=== PATIENT | male | born 1945 | race Native Hawaiian/Other Pacific Islander ===

== ENCOUNTER 2017-06-02 08:13 | Inpatient (IN) | payer MEDICARE ==
--- NOTE | 2017-06-02 08:27 | ED PDOC ---
HPI: General Adult Time Seen by Provider: 06/02/17 08:19 Chief Complaint (Provider): Left sided weakness History Per: Family History/Exam Limitations: no limitations Onset/Duration Of Symptoms: Hrs (since this morning) Current Symptoms Are (Timing): Still Present Additional Complaint(s): Sigifredo Nava is a 72 y/o male with a past medical history of heart disease s/ p bypass surgery who presents to the ED for complaints of left-sided weakness associated with headache and difficulty speaking, since waking up this morning. PMD: Unknown NIHSS Stroke Scale - Date/Time Evaluation Performed Date Performed: 06/02/17 When Was NIHSS Performed: Baseline - How Severe is the Stroke Level of Consciousness: 1=Drowsy Best Gaze: 0=Normal Visual: 0=No visual loss Facial: 1=Minor asymmetry Motor Arm - Left: 2=Falls before 10 sec Motor Arm - Right: 0=No drift Motor Leg - Left: 0=No drift Motor Leg - Right: 0=No drift Best Language: 1=Mild to moderate aphasia Dysarthia: 0=Normal articulation Past Medical History Reviewed: Historical Data, Nursing Documentation, Vital Signs Vital Signs: Last Vital Signs Temp 98 F 06/02/17 08:25 Pulse 80 06/02/17 13:00 Resp 14 06/02/17 13:00 BP 144/81 06/02/17 13:00 Pulse Ox 100 06/02/17 11:00 - Medical History PMH: CAD - Surgical History Surgical History: CABG - Family History Family History: States: Unknown Family Hx - Home Medications Home Medications: Ambulatory Orders Medication Instructions Recorded Clodrel Plus 1 tab PO DAILY 06/02/17 Flavedon (Trimetazine) 35 mg PO DAILY 06/02/17 Olmesartan [BenicarNf] 20 mg PO DAILY 06/02/17 Simvastatin [Simvastatin] 20 mg PO DAILY 06/02/17 Sorbitrate (Isosorbide Dinitrate) 5 mg PO PRN PRN 06/02/17 - Allergies Allergies/Adverse Reactions: Allergies Allergy/AdvReac Type Severity Reaction Status Date / Time No Known Allergies Allergy Verified 06/02/17 08:25 Review of Systems ROS Statement: Except As Marked, All Systems Reviewed And Found Negative Neurological: Positive for: Weakness (Left-sided), Change in Speech, Headache Physical Exam - Reviewed Nursing Documentation Reviewed: Yes Vital Signs Reviewed: Yes - Physical Exam Appears: Positive for: Non-toxic, No Acute Distress Head Exam: Positive for: ATRAUMATIC, NORMOCEPHALIC Skin: Positive for: Normal Color, Warm, DRY Eye Exam: Positive for: Normal appearance, PERRL Neck: Positive for: Normal, Painless ROM, Supple Cardiovascular/Chest: Positive for: Regular Rate, Rhythm. Negative for: Murmur Respiratory: Positive for: Normal Breath Sounds. Negative for: Accessory Muscle Use, Respiratory Distress Gastrointestinal/Abdominal: Positive for: Normal Exam, Soft. Negative for: Tenderness Extremity: Positive for: Normal ROM (Right side normal) Neurologic/Psych: Positive for: Alert (awake but somnolent), Facial Droop (Mild left-sided), Other (weakness in the left upper extremity, and some difficulty with speech) - Laboratory Results Result Diagrams: 06/02/17 08:46 06/02/17 08:46 - Progress Re-evaluation Time: 11:05 Condition: Re-examined, Improving,but remains with symptoms - Core Measure Core Measure Indicators: Code Stroke Medical Decision Making Medical Decision Making: Time: 08:25 Initial Plan: --CT Head w/o contrast (code stroke) stat --EKG --CMP --CBC --HbA1c --Lipid panel --Troponin I --Blood type and screen --PTT --Prothrombin time --CXR --Accucheck --Pending reevaluation Time: 08:38 CT Head w/o contrast: FINDINGS: HEMORRHAGE: No intracranial hemorrhage. BRAIN: There is some motion for distorting the upper portion of the examination with note definite mass effect or cortical edema appreciable this time. Chronic lobar infarction is identified in the right parietal lobe with a posterior fossa contents and brainstem unremarkable appearing. The midline brain and appears within normal limits. Diffuse cerebral atrophy is identified. Limited periventricular white matter lucency reflects chronic microangiopathy. VENTRICLES: Unremarkable. No hydrocephalus. CALVARIUM: Unremarkable. PARANASAL SINUSES: Unremarkable as visualized. No significant inflammatory changes. MASTOID AIR CELLS: Unremarkable as visualized. No inflammatory changes. OTHER FINDINGS: None. IMPRESSION: 1. There is some motion artifact limiting the interpretation are there is no definitive pattern of suggest an acute or subacute brain infarction at this time. A chronic lobar infarction is identified at the right parietal lobe. 2. Mild age related neuro degenerative changes are identified. No intracranial hemorrhage or mass-effect. Time: 08:50 --Consulted with Neurologist, Dr. Lehman, who reviewed patient's CT and exam findings, and recommends ordering CT Angiogram Time: 08:53 --Pending CT Head Angiography and CTA Head/Neck Time: 12:40 CT Angiography of Brain: FINDINGS: INTERNAL CEREBRAL ARTERIES: Unremarkable. The skull base, petrous, cavernous and supraclinoid segments are bilaterally widely patient. ANTERIOR CEREBRAL ARTERIES: Unremarkable. A1 and A2 segments are widely patent. Smaller distal branches unremarkable, as visualized. MIDDLE CEREBRAL ARTERIES: Unremarkable. M1 and M2 segments are widely patent. Perisylvian branches grossly symmetric. POSTERIOR CIRCULATION: Basilar Artery: Unremarkable. Distal Vertebral Arteries: Unremarkable. Posterior Cerebral Arteries: Unremarkable. Posterior Inferior Cerebellar Arteries: Unremarkable. ANEURYSM/ VASCULAR MALFORMATIONS: None. OTHER FINDINGS: None. IMPRESSION: Unremarkable CT Angiography of the Brain. CT Angiography of Neck: FINDINGS: RIGHT CAROTID ARTERIES: There is calcified plaque in the carotid bifurcation with a mild degree of stenosis of the internal carotid. There is also a transverse flap-like stenosis in the proximal internal carotid seen on image 120 series 302 LEFT CAROTID ARTERIES: Calcified plaque at the carotid bifurcation. There is tortuosity of the internal carotid but no significant stenosis. VERTEBRAL ARTERIES: Right Vertebral Artery: Normal. Left Vertebral Artery: Normal. OTHER FINDINGS: None. IMPRESSION: Bilateral calcified carotid plaques. Small transverse flap-like stenosis in the right proximal internal carotid. There is no evidence of severe or critical stenosis in either carotid. Time: 12:44 --Patient is to be admitted inpatient for CVA, TIA Scribe Attestation: Documented by Celine Velasco, acting as a scribe for Yue Dwyer MD Provider Scribe Attestation: All medical record entries made by the Scribe were at my direction and personally dictated by me. I have reviewed the chart and agree that the record accurately reflects my personal performance of the history, physical exam, medical decision making, and the department course for this patient. I have also personally directed, reviewed, and agree with the discharge instructions and disposition. Disposition - Clinical Impression Clinical Impression: CVA (cerebral vascular accident) - Patient ED Disposition Is Patient to be Admitted: Yes Doctor Will See Patient In The: Hospital Counseled Patient/Family Regarding: Diagnosis, Need For Followup - Disposition Disposition: Transfer of Care Disposition Time: 14:22 Condition: GUARDED - Pt Status Changed To: Hospital Disposition Of: Inpatient - Admit Certification Admit to Inpatient:: After my assessment, the patient will require hospitalization for at least two midnights. This is because of the severity of symptoms shown, intensity of services needed, and/or the medical risk in this patient being treated as an outpatient.
[2017-06-02 08:29] VITALS: BMI 24.3
--- NOTE | 2017-06-02 08:47 | CT ---
PROCEDURE: CT HEAD WITHOUT CONTRAST. HISTORY: code stroke COMPARISON: None available. TECHNIQUE: Axial computed tomography images were obtained through the head/brain without intravenous contrast. Radiation dose: Total exam DLP = 1114.24 mGy-cm. This CT exam was performed using one or more of the following dose reduction techniques: Automated exposure control, adjustment of the mA and/or kV according to patient size, and/or use of iterative reconstruction technique. FINDINGS: HEMORRHAGE: No intracranial hemorrhage. BRAIN: There is some motion for distorting the upper portion of the examination with note definite mass effect or cortical edema appreciable this time. Chronic lobar infarction is identified in the right parietal lobe with a posterior fossa contents and brainstem unremarkable appearing. The midline brain and appears within normal limits. Diffuse cerebral atrophy is identified. Limited periventricular white matter lucency reflects chronic microangiopathy. VENTRICLES: Unremarkable. No hydrocephalus. CALVARIUM: Unremarkable. PARANASAL SINUSES: Unremarkable as visualized. No significant inflammatory changes. MASTOID AIR CELLS: Unremarkable as visualized. No inflammatory changes. OTHER FINDINGS: None. IMPRESSION: 1. There is some motion artifact limiting the interpretation are there is no definitive pattern of suggest an acute or subacute brain infarction at this time. A chronic lobar infarction is identified at the right parietal lobe. 2. Mild age related neuro degenerative changes are identified. No intracranial hemorrhage or mass-effect.
[2017-06-02 09:07] LABS: BASO % 0.6 % (0.0-2.0); EOS # 0.3 K/uL (0.0-0.7); EOS % 3.4 % (0.0-4.0); HEMOGLOBIN 11.8 g/dL (12.0-18.0); LYMPH # 2.3 K/uL (1.0-4.3); LYMPH % 31.3 % (20.0-40.0); MEAN CELL VOLUME 86.3 fl (80.0-94.0); MEAN CORPUSCULAR HEMOGLOBIN 27.9 pg (27.0-31.0); MEAN CORPUSCULAR HGB CONC 32.3 g/dL (33.0-37.0); MEAN PLATELET VOLUME 8.2 fl (7.2-11.7); MONO # 0.4 K/uL (0.0-0.8); MONO % 5.6 % (0.0-10.0); NEUT # 4.4 K/uL (1.8-7.0); NEUT % 59.1 % (50.0-75.0); NRBC % 0.1 % (0.0-0.0); RBC 4.23 Mil/uL (4.40-5.90); RED CELL DISTRIBUTION WIDTH 18.1 % (11.5-14.5); WHITE BLOOD COUNT 7.5 K/uL (4.8-10.8)
[2017-06-02 09:14] LABS: ALB/GLOB RATIO 1.3 (1.0-2.1); ALBUMIN 4.3 g/dL (3.5-5.0); ALT/SGPT 47 U/L (21-72); AST/SGOT 47 U/L (17-59); BLOOD UREA NITROGEN 9 mg/dl (9-20); CALCIUM 9.1 mg/dL (8.4-10.2); GFR AFRICAN-AMERICAN > 60; GFR NON-AFRICAN AMERICAN > 60; HDL CHOLESTEROL 28 MG/DL (30-70)
[2017-06-02 09:23] LABS: INR 1.2 (0.9-1.2); PARTIAL THROMBOPLASTIN TIME 29.1 Seconds (25.6-37.1); PROTHROMBIN TIME 12.4 Seconds (9.8-13.1)
[2017-06-02] MEDS ORDERED: Iodixanol 320 MG/ML 100 ML BOTTLE IV ONE (09:23)
[2017-06-02] MEDS ORDERED: Sodium Chloride 0.9% 50 ML IV ONE (09:24)
[2017-06-02 09:25] LABS: LDL CHOLESTEROL 111 mg/dL (0-129)
--- NOTE | 2017-06-02 09:37 | CARD ---
APPROVED REPORT EKG Measurement Heart [id number] CT 142P-14 [id number] <Conclusion> Normal sinus rhythm Inferior infarct, age undetermined Abnormal ECG
--- NOTE | 2017-06-02 12:41 | CT ---
PROCEDURE: CT Angiography of the Brain. HISTORY: left sided weakness COMPARISON: None available. TECHNIQUE: CT angiography of the intracranial arteries was performed. Coronal and sagittal maximum intensity projection reformated images were generated. This CT exam was performed using one or more of the following dose reduction techniques: Automated exposure control, adjustment of the mA and/or kV according to patient size, and/or use of iterative reconstruction technique. FINDINGS: INTERNAL CEREBRAL ARTERIES: Unremarkable. The skull base, petrous, cavernous and supraclinoid segments are bilaterally widely patient. ANTERIOR CEREBRAL ARTERIES: Unremarkable. A1 and A2 segments are widely patent. Smaller distal branches unremarkable, as visualized. MIDDLE CEREBRAL ARTERIES: Unremarkable. M1 and M2 segments are widely patent. Perisylvian branches grossly symmetric. POSTERIOR CIRCULATION: Basilar Artery: Unremarkable. Distal Vertebral Arteries: Unremarkable. Posterior Cerebral Arteries: Unremarkable. Posterior Inferior Cerebellar Arteries: Unremarkable. ANEURYSM/ VASCULAR MALFORMATIONS: None. OTHER FINDINGS: None. IMPRESSION: Unremarkable CT Angiography of the Brain. PROCEDURE: CT Angiography of the neck with contrast HISTORY: left sided weakness COMPARISON: None available. TECHNIQUE: Contiguous axial images of the neck were obtained from the level of the skull-base to the superior mediastinum in the arteriographic phase of enhancement. Coronal and sagittal reformats or also generated. IV contrast dose: Radiation Dose - DLP: mGy-cm This CT exam was performed using one or more of the following dose reduction techniques: Automated exposure control, adjustment of the mA and/or kV according to patient size, and/or use of iterative reconstruction technique. FINDINGS: RIGHT CAROTID ARTERIES: There is calcified plaque in the carotid bifurcation with a mild degree of stenosis of the internal carotid. There is also a transverse flap-like stenosis in the proximal internal carotid seen on image 120 series 302 LEFT CAROTID ARTERIES: Calcified plaque at the carotid bifurcation. There is tortuosity of the internal carotid but no significant stenosis. VERTEBRAL ARTERIES: Right Vertebral Artery: Normal. Left Vertebral Artery: Normal. OTHER FINDINGS: None. IMPRESSION: Bilateral calcified carotid plaques. Small transverse flap-like stenosis in the right proximal internal carotid. There is no evidence of severe or critical stenosis in either carotid
[2017-06-02] MEDS ORDERED: SORBITRATE PO PRN (14:22)
--- NOTE | 2017-06-02 16:06 | RAD ---
HISTORY: code stroke COMPARISON: No prior. FINDINGS: LUNGS: No active pulmonary disease. PLEURA: No significant pleural effusion identified, no pneumothorax apparent. CARDIOVASCULAR: Cardiomegaly. No evidence of acute, significant cardiovascular disease. OSSEOUS STRUCTURES: No significant abnormalities. VISUALIZED UPPER ABDOMEN: Normal. OTHER FINDINGS: None. IMPRESSION: No active disease.
[2017-06-02] MEDS ORDERED: Pneumococcal 23-Valent Vaccine IM ONE (16:12)
[2017-06-02] MEDS: Enoxaparin 40 mg Syringe SC SCH (22:36)
[2017-06-03] MEDS: Enoxaparin 40 mg Syringe SC SCH (08:35)
--- NOTE | 2017-06-03 11:34 | CARD ---
APPROVED REPORT EXAM: Two-dimensional and M-mode echocardiogram with Doppler and color Doppler. Other Information Quality : AverageRhythm : NSR INDICATION CVA/TIA Surgery/Intervention CABD DIMENSIONS IVSd1.54 (0.7-1.1cm)LVDd4.86 (3.9-5.9cm) LVOT Diameter2.20 (1.8-2.4cm)PWd0.74 (0.7-1.1cm) IVSs1.62 (0.8-1.2cm)LVDs3.57 (2.5-4.0cm) FS (%) 26.5 %PWs1.45 (0.8-1.2cm) M-Mode DIMENSIONS Left Atrium (MM)4.96 (2.5-4.0cm)IVSd0.98 (0.7-1.1cm) Aortic Root3.07 (2.2-3.7cm)LVDd6.57 (4.0-5.6cm) Aortic Cusp Exc.1.99 (1.5-2.0cm)PWd0.87 (0.7-1.1cm) IVSs2.06 cmFS (%) 43 % LVDs3.77 (2.0-3.8cm)PWs1.08 cm Mitral Valve MV E Yhvspkdk45.1cm/sMV DECEL [id number] A Mnfmrkic25.0cm/s MV [id number]/A ratio1.5MVA (PHT)3.94cm2 TDI Lateral E' Peak V10.02cm/sMedial E' Peak V4.73cm/sE/Lateral E'8.2 E/Medial E'17.4 Pulmonary Valve PV Peak Zamzyddg57.4cm/s Tricuspid Valve TR Peak Nrftnlpt544dd/sRAP [id number] Peak Gr.28mmHg [id number] LEFT VENTRICLE The left ventricle is normal size. There is normal left ventricular wall thickness. Left ventricle systolic function is normal. The Ejection Fraction is 60-65%. Inferior wall was mildly hypokinetic. Other LV wall segments contracted normally, Transmitral Doppler flow pattern is Grade I-abnormal relaxation pattern. RIGHT VENTRICLE The right ventricle is normal size. There is normal right ventricular wall thickness. The right ventricular systolic function is normal. ATRIA The left atrium size is normal. The right atrium size is normal. AORTIC VALVE The aortic valve is normal in structure and function. No aortic regurgitation is present. There is no aortic valvular stenosis. MITRAL VALVE The mitral valve is normal in structure. There is no evidence of mitral valve prolapse. There is no mitral valve stenosis. Mitral regurgitation is mild to moderate. TRICUSPID VALVE The tricuspid valve is normal in structure. There is mild tricuspid regurgitation. Right ventricular systolic pressure is estimated at 38 mmHg. There is mild pulmonary hypertension. PULMONIC VALVE The pulmonary valve is normal in structure and function. There is no pulmonic valvular regurgitation. GREAT VESSELS The aortic root is normal in size. Due to poor image quality, the IVC could not be assessed. PERICARDIAL EFFUSION The pericardium appears normal. <Conclusion> Poor echo window with suboptimal images. The left ventricle is normal size. There is normal left ventricular wall thickness. Inferior wall was mildly hypokinetic. Other LV wall segments contracted normally, Left ventricle systolic function is normal. The Ejection Fraction is 60-65%. Transmitral Doppler flow pattern is Grade I-abnormal relaxation pattern. Mitral regurgitation is mild to moderate. There is mild tricuspid regurgitation. There is mild pulmonary hypertension.
[2017-06-03] MEDS: CYANOCOBALAMIN 500 MCG TAB PO SCH (12:37)
--- NOTE | 2017-06-03 14:23 | CP.PCM.HP ---
<Erin Edgar - Last Filed: 06/03/17 15:49> History of Present Illness - History of Present Illness History of Present Illness: 72 y/o male with PMHx of HTN, HLD, CAD ( s/p CABG on 2000) presents to ED accompanied by family c/o slurry speech, left-sided weakness associated with headaches, since waking up yesterday morning. Patient denies headaches, dizziness, Cp, SOB, N/V at this evaluation, but still reporting left sided weakness and pain in right upper extremity. As per family, this was the first episode of reported S/S, and patient did not fall or had LOC. Present on Admission - Present on Admission Any Indicators Present on Admission: No History of DVT/PE: No History of Uncontrolled Diabetes: No Urinary Catheter: No Decubitus Ulcer Present: No Review of Systems - Review of Systems All systems: reviewed and no additional remarkable complaints except (as per HPI ) Past Patient History - Past Medical History & Family History Past Medical History?: Yes - Past Social History Smoking Status: Never Smoked - CARDIAC Hx Cardiac Disorders: Yes Hx Heart Attack: Yes - PULMONARY Hx Respiratory Disorders: No - NEUROLOGICAL Hx Neurological Disorder: No - HEENT Hx HEENT Problems: No - RENAL Hx Chronic Kidney Disease: No - ENDOCRINE/METABOLIC Hx Endocrine Disorders: No - HEMATOLOGICAL/ONCOLOGICAL Hx Blood Disorders: No - INTEGUMENTARY Hx Dermatological Problems: No - MUSCULOSKELETAL/RHEUMATOLOGICAL Hx Musculoskeletal Disorders: No Hx Falls: No - GASTROINTESTINAL Hx Gastrointestinal Disorders: No - GENITOURINARY/GYNECOLOGICAL Hx Genitourinary Disorders: No - PSYCHIATRIC Hx Psychophysiologic Disorder: No Hx Substance Use: No - SURGICAL HISTORY Hx Surgeries: Yes Hx Coronary Artery Bypass Graft: Yes - ANESTHESIA Hx Anesthesia: Yes Hx Anesthesia Reactions: No Hx Malignant Hyperthermia: No Meds Allergies/Adverse Reactions: Allergies Allergy/AdvReac Type Severity Reaction Status Date / Time No Known Allergies Allergy Verified 06/02/17 08:25 Physical Exam - Constitutional Appears: Non-toxic - Eye Exam Eye Exam: Normal appearance - ENT Exam ENT Exam: Mucous Membranes Moist - Respiratory Exam Respiratory Exam: Clear to Auscultation Bilateral, NORMAL BREATHING PATTERN. absent: Rales, Rhonchi, Wheezes, Respiratory Distress - Cardiovascular Exam Cardiovascular Exam: REGULAR RHYTHM, +S1, +S2 - GI/Abdominal Exam GI & Abdominal Exam: Normal Bowel Sounds, Soft. absent: Guarding, Rigid, Tenderness - Extremities Exam Extremities exam: Positive for: normal inspection. Negative for: calf tenderness, pedal edema - Neurological Exam Neurological exam: Alert, CN II-XII Intact, Oriented x3, Reflexes Normal Additional comments: left upper extremity strength 4/5, right UE strength 5/5 - Psychiatric Exam Psychiatric exam: Normal Affect - Skin Skin Exam: Dry, Intact, Normal Color Results - Vital Signs Recent Vital Signs: Last Vital Signs Temp 98.1 F 06/03/17 12:00 Pulse 74 06/03/17 12:00 Resp 20 06/03/17 12:00 BP 131/70 06/03/17 12:00 Pulse Ox 99 06/03/17 12:00 - Labs Result Diagrams: 06/02/17 08:46 06/02/17 08:46 Labs: Laboratory Results - last 24 hr 06/02/17 06/03/17 15:27 11:21 POC Glucose (mg/dL) 110 Vitamin B12 237 L TSH 3rd Generation 5.42 H Assessment & Plan - Assessment and Plan (Free Text) Assessment: 72-year-old man with a past medical history of HTN, HLD, CAD ( s/p CABG) admitted for episode of slurred speech and left sided weakness. Plan: Left sided weakness Most likely 2/2 TIA/ CVA -admit to telemetry -start aspirin 81 mg -start plavix 75 mg -start statin f/u HgbA1C, Vit B12, TSH Neurology consult , f/u recommendations PT/OT eval and treat Head CT showed no intracraneal hemorrhage Hypertension HTN (do not treat SBP < 220/110 mm Hg for the next 36 hours) as per neurology recommendations Hold BP meds for now DVT prophylaxis LOvenox 40 mg SC daily - Date & Time Date: 06/02/17 Time: 14:10 <Brennan Farr - Last Filed: 06/06/17 11:26> Results - Vital Signs Recent Vital Signs: Last Vital Signs Temp 97.8 F 06/06/17 08:14 Pulse 67 06/06/17 08:14 Resp 18 06/06/17 08:14 BP 126/73 06/06/17 08:14 Pulse Ox 97 06/06/17 08:14 - Labs Result Diagrams: 06/02/17 08:46 06/02/17 08:46 Labs: Laboratory Results - last 24 hr 06/05/17 06/05/17 06/05/17 11:03 15:39 21:05 POC Glucose (mg/dL) 115 H 96 84 06/06/17 05:18 POC Glucose (mg/dL) 95 Assessment & Plan - Assessment and Plan (Free Text) Plan: I was present during evaluation and discussed with Dr Edgar re plans of care and mgt. Brennan Farr M.D.
--- NOTE | 2017-06-03 15:03 | CP.PCM.CON ---
History of Present Illness - History of Present Illness History of Present Illness: Mr. Nava is a 72-year-old man with a past medical history of HTN, HLD, CAD ( s /p CABG), who presented to the ED yesterday with complaints of left sided weakness and slurred speech that he woke up with. 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 Today, his symptoms have improved significantly and he does not have significant weakness. He has some subtle left side sensory changes that he complains of. The patient's family states that he has had intermittent episodes of confusion and possible hallucinations, but he is currently at baseline mental function. He did not have any other complaints. Review of Systems - Review of Systems All systems: reviewed and no additional remarkable complaints except Past Patient History - Past Medical History & Family History Past Medical History?: Yes - Past Social History Smoking Status: Never Smoked - CARDIAC Hx Cardiac Disorders: Yes Hx Heart Attack: Yes - PULMONARY Hx Respiratory Disorders: No - NEUROLOGICAL Hx Neurological Disorder: No - HEENT Hx HEENT Problems: No - RENAL Hx Chronic Kidney Disease: No - ENDOCRINE/METABOLIC Hx Endocrine Disorders: No - HEMATOLOGICAL/ONCOLOGICAL Hx Blood Disorders: No - INTEGUMENTARY Hx Dermatological Problems: No - MUSCULOSKELETAL/RHEUMATOLOGICAL Hx Musculoskeletal Disorders: No Hx Falls: No - GASTROINTESTINAL Hx Gastrointestinal Disorders: No - GENITOURINARY/GYNECOLOGICAL Hx Genitourinary Disorders: No - PSYCHIATRIC Hx Psychophysiologic Disorder: No Hx Substance Use: No - SURGICAL HISTORY Hx Surgeries: Yes Hx Coronary Artery Bypass Graft: Yes - ANESTHESIA Hx Anesthesia: Yes Hx Anesthesia Reactions: No Hx Malignant Hyperthermia: No Meds Allergies/Adverse Reactions: Allergies Allergy/AdvReac Type Severity Reaction Status Date / Time No Known Allergies Allergy Verified 06/02/17 08:25 - Medications Medications: Current Medications Aspirin (Aspirin Chewable) 81 mg PO HS [facility] Atorvastatin Calcium (Lipitor) 10 mg PO HS [facility] Clopidogrel Bisulfate (Plavix) 75 mg PO HS [facility] Cyanocobalamin (Vitamin B12) 250 mcg PO DAILY [facility] Last Admin: 06/03/17 12:37 Dose: 250 mcg Enoxaparin Sodium (Lovenox) 40 mg SC DAILY [facility] PRN Reason: Protocol Last Admin: 06/03/17 08:35 Dose: 40 mg Losartan Potassium (Cozaar) 50 mg PO DAILY PRN PRN Reason: hypertension Metformin HCl (Glucophage) 500 mg PO BIDWM [facility] Last Admin: 06/03/17 12:37 Dose: 500 mg Physical Exam - Constitutional Appears: Well - Head Exam Head Exam: ATRAUMATIC, NORMAL INSPECTION, NORMOCEPHALIC - Eye Exam Eye Exam: EOMI, Normal appearance, PERRL - ENT Exam ENT Exam: Mucous Membranes Moist, Normal Exam - Neck Exam Neck exam: Positive for: Normal Inspection - Respiratory Exam Respiratory Exam: Clear to Auscultation Bilateral, NORMAL BREATHING PATTERN - Cardiovascular Exam Cardiovascular Exam: REGULAR RHYTHM, +S1, +S2 - GI/Abdominal Exam GI & Abdominal Exam: Normal Bowel Sounds, Soft. absent: Tenderness - Rectal Exam Rectal Exam: Deferred - Extremities Exam Extremities exam: Positive for: normal inspection - Back Exam Back exam: NORMAL INSPECTION - Neurological Exam Neurological exam: Alert, CN II-XII Intact, Normal Gait, Oriented x3, Reflexes Normal - Expanded Neurological Exam Expanded Patient oriented to: person, place, time Cranial nerves: EOM's Intact: Normal, Facial Palsey w/Forehead Movement: Normal , Gag Reflex: Normal, Nystagmus: Normal Ataxia: No Cerebellar Function: Finger to Nose: Normal, Heel to Neff: Normal Upper motor neuron: Babinski Sign: Normal Sensory exam: Lower Extremity Light Touch: Abnormal Left, Lower Extremity Pin Prick: Abnormal Left, Upper Extremity Light Touch: Abnormal Left, Upper Extremity Pin Prick: Abnormal Left Neuro motor strength exam: Left Upper Extremity: 5, Right Upper Extremity: 5, Left Lower Extremity: 5, Right Lower Extremity: 5 DTR: Bicep Left: 3+, Bicep Right: 2+, Brachioradialis Left: 3+, Brachioradialis Right: 2+, Patellar Left: 3+, Patellar Right: 2+, Tricep Left: 3+, Tricep Right : 2+ - Psychiatric Exam Psychiatric exam: Normal Affect, Normal Mood - Skin Skin Exam: Dry, Intact, Normal Color, Warm Results - Vital Signs Recent Vital Signs: Last Vital Signs Temp 98.1 F 06/03/17 12:00 Pulse 74 06/03/17 12:00 Resp 20 06/03/17 12:00 BP 131/70 06/03/17 12:00 Pulse Ox 99 06/03/17 12:00 - Labs Result Diagrams: 06/02/17 08:46 06/02/17 08:46 Labs: Laboratory Results - last 24 hr 06/02/17 06/03/17 15:27 11:21 POC Glucose (mg/dL) 110 Vitamin B12 237 L TSH 3rd Generation 5.42 H - Imaging and Cardiology CT scan - head Status: Image reviewed by me, Report reviewed by me (Chronic right parietal infarct that appears to be extending from subcortical to cortical region in a straight path.) Assessment & Plan (1) CVA (cerebral vascular accident) Assessment and Plan: His presentation is more consistent with resurgence of previous stroke symptoms since he has a chronic right parietal stroke on non-contrast CT head, and he presented with left side weakness. However, the CT head is not very accurate for acute infarcts. Clinically, he is improved. I recommend the followin. Telemetry 2. MRI of the brain without contrast and MRA of the head/neck without contrast 3. Echocardiogram with bubble study 4. Check HbA1c, Lipid panel, TSH, Factor V Leiden, Prothrombin gene mutation, Lupus anticoagulant 5. Continue aspirin 81 mg daily and plavix 75 mg daily 6. Fluids with NS at 100 mL/hr 7. Permissive HTN (do not treat SBP < 220/110 mm Hg for the next 36 hours) 8. Continue atorvastatin 9. PT/OT eval and treat 10. DVT Px 11. Case management consult Thank you. Status: Acute Priority: High
[2017-06-03] MEDS ORDERED: Lidocaine 5% Patch TD SCH ×2 (16:45→20:00)
[2017-06-04] MEDS: Enoxaparin 40 mg Syringe SC SCH (08:57)
[2017-06-04] MEDS: CYANOCOBALAMIN 500 MCG TAB PO SCH (08:59)
--- NOTE | 2017-06-04 14:02 | CP.PCM.PN ---
<Erin Edgar - Last Filed: 06/04/17 14:00> Subjective - Date & Time of Evaluation Date of Evaluation: 06/04/17 Time of Evaluation: 08:50 - Subjective Subjective: patient seen and examined with attending patient alert, awake, and oriented X 3 patient feeling better this morning Tolerating PO Denies Cp, SOB, N/V, abdominal pain Objective - Vital Signs/Intake and Output Vital Signs (last 24 hours): Temp Pulse Resp BP Pulse Ox 98.1 F 67 18 132/72 97 06/04/17 12:27 06/04/17 12:27 06/04/17 12:27 06/04/17 12:27 06/04/17 12:27 - Medications Medications: Current Medications Aspirin (Aspirin Chewable) 81 mg PO HS [facility] Last Admin: 06/03/17 22:00 Dose: 81 mg Atorvastatin Calcium (Lipitor) 10 mg PO HS [facility] Last Admin: 06/03/17 22:00 Dose: 10 mg Clopidogrel Bisulfate (Plavix) 75 mg PO [facility] Last Admin: 06/03/17 22:00 Dose: 75 mg Cyanocobalamin (Vitamin B12) 250 mcg PO DAILY [facility] Last Admin: 06/04/17 08:59 Dose: 250 mcg Enoxaparin Sodium (Lovenox) 40 mg SC DAILY [facility] PRN Reason: Protocol Last Admin: 06/04/17 08:57 Dose: 40 mg Lidocaine (Lidoderm) 1 ea TD DAILY@1999 [facility] Lorazepam (Ativan) 0.5 mg IVP ONCE PRN PRN Reason: Agitation Losartan Potassium (Cozaar) 50 mg PO DAILY PRN PRN Reason: hypertension Metformin HCl (Glucophage) 500 mg PO BIDWM [facility] Last Admin: 06/04/17 08:58 Dose: 500 mg - Labs Labs: PT 12.4 Seconds (9.8-13.1) 06/02/17 08:46 INR 1.2 (0.9-1.2) 06/02/17 08:46 APTT 29.1 Seconds (25.6-37.1) 06/02/17 08:46 - Additional Findings Additional findings: Constitutional Appears: Non-toxic - Eye Exam Eye Exam: Normal appearance - ENT Exam ENT Exam: Mucous Membranes Moist - Respiratory Exam Respiratory Exam: Clear to Auscultation Bilateral, NORMAL BREATHING PATTERN. absent: Rales, Rhonchi, Wheezes, Respiratory Distress - Cardiovascular Exam Cardiovascular Exam: REGULAR RHYTHM, +S1, +S2 - GI/Abdominal Exam GI & Abdominal Exam: Normal Bowel Sounds, Soft. absent: Guarding, Rigid, Tenderness - Extremities Exam Extremities exam: Positive for: normal inspection. Negative for: calf tenderness, pedal edema - Neurological Exam Neurological exam: Alert, CN II-XII Intact, Oriented x3, Reflexes Normal Additional comments: left upper extremity strength 4/5, right UE strength 5/5 - Psychiatric Exam Psychiatric exam: Normal Affect - Skin Skin Exam: Dry, Intact, Normal Color Assessment and Plan (1) CVA (cerebral vascular accident) Assessment & Plan: improving clinically C/W current management PT/OT evaluation F/U brain MRI, head and neck MRA results f/u neurology recommendations Status: Acute (2) New onset type 2 diabetes mellitus Assessment & Plan: HgbA1C: 6.6 started on Metformin 500 mg BID accucheck Status: Acute (3) Hypertension Assessment & Plan: c/w current monitoring and management Status: Chronic <Brennan Farr - Last Filed: 06/06/17 11:27> Objective - Vital Signs/Intake and Output Vital Signs (last 24 hours): Temp Pulse Resp BP Pulse Ox 97.8 F 67 18 126/73 97 06/06/17 08:14 06/06/17 08:14 06/06/17 08:14 06/06/17 08:14 06/06/17 08:14 - Medications Medications: Current Medications Aspirin (Aspirin Chewable) 81 mg PO HS [facility] Last Admin: 06/05/17 21:53 Dose: 81 mg Atorvastatin Calcium (Lipitor) 10 mg PO [facility] Last Admin: 06/05/17 21:53 Dose: 10 mg Clopidogrel Bisulfate (Plavix) 75 mg PO HS [facility] Last Admin: 06/05/17 21:54 Dose: 75 mg Cyanocobalamin (Vitamin B12) 250 mcg PO DAILY [facility] Last Admin: 06/06/17 08:31 Dose: 250 mcg Enoxaparin Sodium (Lovenox) 40 mg SC DAILY [facility] PRN Reason: Protocol Last Admin: 06/06/17 08:31 Dose: 40 mg Lidocaine (Lidoderm) 1 ea TD DAILY@1999 [facility] Last Admin: 06/05/17 21:00 Dose: 1 ea Losartan Potassium (Cozaar) 50 mg PO DAILY PRN PRN Reason: hypertension Metformin HCl (Glucophage) 500 mg PO BIDWM [facility] Last Admin: 06/06/17 08:31 Dose: 500 mg - Labs Labs: PT 12.4 Seconds (9.8-13.1) 06/02/17 08:46 INR 1.2 (0.9-1.2) 06/02/17 08:46 APTT 29.1 Seconds (25.6-37.1) 06/02/17 08:46 Assessment and Plan - Assessment and Plan (Free Text) Plan: I was present during evaluation follow up MRI MRA. follow up with Neuro. Brennan Farr M.D.
--- NOTE | 2017-06-04 17:03 | MRI ---
PROCEDURE: MRI BRAIN WITHOUT CONTRAST HISTORY: stroke COMPARISON: Head CT 06/02/2017 without contrast, CTA head 06/02/2017. TECHNIQUE: Multiplanar, multisequence MR images of the brain were obtained without intravenous contrast enhancement. FINDINGS: HEMORRHAGE: None DWI: No evidence of an acute or early subacute infarction. BRAIN PARENCHYMA: A small chronic lobar infarctions identified at the right parietal lobe as well as white matter signal changes compatible limited chronic microangiopathy. There is also expansion of the ventricular sulcal attention and cisternal spaces compatible with diffuse cerebral atrophy. These degenerative findings appear age-appropriate. There is no mass effect or suspicious extra-axial fluid collection identified. Posterior fossa contents appear unremarkable including the brainstem. Midline brain anatomy appears within normal limits including the corpus callosum and craniocervical junction. VENTRICLES: Unremarkable. No hydrocephalus. CRANIUM: Unremarkable. ORBITS: Grossly unremarkable. PARANASAL SINUSES/MASTOIDS: Multifocal inflammatory mucosal changes bilateral ethmoid sinuses and left maxillary sinus. Trace right mastoiditis is questioned. VASCULAR SYSTEM: Skull base flow voids intact. OTHER FINDINGS: None. IMPRESSION: 1. No acute or subacute brain infarction identified. 2. A small chronic lobar infarction is identified in the right parietal lobe once again. 3. Stable age related neuro degenerative change identified.
[2017-06-04] MEDS: Lidocaine 5% Patch TD SCH (21:34)
[2017-06-05] MEDS: CYANOCOBALAMIN 500 MCG TAB PO SCH (08:24)
[2017-06-05] MEDS: Enoxaparin 40 mg Syringe SC SCH (08:24)
--- NOTE | 2017-06-05 13:04 | MRI ---
PROCEDURE: Magnetic Resonance Angiography Brain HISTORY: stroke COMPARISON: None available. TECHNIQUE: 3D time of flight MR angiography of the intracranial arteries was performed. Rotating maximum intensity projection images were generated. FINDINGS: INTERNAL CEREBRAL ARTERIES: Unremarkable. The skull base, petrous, cavernous and supraclinoid segments are bilaterally widely patient. ANTERIOR CEREBRAL ARTERIES: Unremarkable. A1 and A2 segments are widely patent. Smaller distal branches unremarkable, as visualized. MIDDLE CEREBRAL ARTERIES: Unremarkable. M1 and M2 segments are widely patent. Perisylvian branches grossly symmetric. POSTERIOR CIRCULATION: Basilar Artery: Unremarkable. Distal Vertebral Arteries: Unremarkable. Posterior Cerebral Arteries: Unremarkable. Posterior Inferior Cerebellar Arteries: Unremarkable. ANEURYSM/ VASCULAR MALFORMATIONS: None. OTHER FINDINGS: None. IMPRESSION: Unremarkable MR angiography of the brain.
--- NOTE | 2017-06-05 13:05 | MRI ---
PROCEDURE: MR Angiography of the neck without contrast HISTORY: stroke COMPARISON: None available. TECHNIQUE: 3D [id number]-[id number] angiography of the neck was performed. Rotating maximum intensity projection images of the cervical carotid and vertebral arteries were generated. The origins of the common carotid arteries were not visualized, which is a limitation inherent to the non-contrast time of flight technique. FINDINGS: RIGHT CAROTID ARTERIES: Common Carotid Artery: Normal. Carotid Bifurcation: Normal. Internal Carotid Artery:Normal. External Carotid Artery (proximal branches): Normal. LEFT CAROTID ARTERIES: Common Carotid Artery: Normal. Carotid Bifurcation: Normal. Internal Carotid Artery:Normal. External Carotid Artery (proximal branches): Normal. VERTEBRAL ARTERIES: Right Vertebral Artery: Normal. Left Vertebral Artery: Normal. OTHER FINDINGS: None. IMPRESSION: Normal MR Angiography of the neck.
--- NOTE | 2017-06-05 17:46 | CP.PCM.PN ---
Subjective - Date & Time of Evaluation Date of Evaluation: 06/05/17 Time of Evaluation: 17:44 - Subjective Subjective: Mr. Nava was seen and examined today at bedside. He was doing well, had no complaints and there were no acute events overnight. I spoke with his family at length regarding the previous stroke and let them know there are no new infarcts noted on the MRI. Objective - Vital Signs/Intake and Output Vital Signs (last 24 hours): Temp Pulse Resp BP Pulse Ox 97.7 F 72 16 119/66 98 06/05/17 16:01 06/05/17 16:01 06/05/17 16:01 06/05/17 16:01 06/05/17 16:01 - Medications Medications: Current Medications Aspirin (Aspirin Chewable) 81 mg PO [facility] Last Admin: 06/04/17 21:32 Dose: 81 mg Atorvastatin Calcium (Lipitor) 10 mg PO HS [facility] Last Admin: 06/04/17 21:32 Dose: 10 mg Clopidogrel Bisulfate (Plavix) 75 mg PO [facility] Last Admin: 06/04/17 21:32 Dose: 75 mg Cyanocobalamin (Vitamin B12) 250 mcg PO DAILY [facility] Last Admin: 06/05/17 08:24 Dose: 250 mcg Enoxaparin Sodium (Lovenox) 40 mg SC DAILY [facility] PRN Reason: Protocol Last Admin: 06/05/17 08:24 Dose: 40 mg Lidocaine (Lidoderm) 1 ea TD DAILY@1999 [facility] Last Admin: 06/04/17 21:34 Dose: 1 ea Losartan Potassium (Cozaar) 50 mg PO DAILY PRN PRN Reason: hypertension Metformin HCl (Glucophage) 500 mg PO BIDWM [facility] Last Admin: 06/05/17 16:34 Dose: 500 mg - Labs Labs: PT 12.4 Seconds (9.8-13.1) 06/02/17 08:46 INR 1.2 (0.9-1.2) 06/02/17 08:46 APTT 29.1 Seconds (25.6-37.1) 06/02/17 08:46 - Neurological Exam Additional comments: Neurologically unchanged compared with previous examination. Assessment and Plan (1) CVA (cerebral vascular accident) Assessment & Plan: Chronic infarct, but he may have had a TIA or a resurgence of symptoms. I recommended continue aspirin and plavix for 21 days and then continuing plavix indefinitely at 75 mg daily. Continue lipitor, glucose management, and stop using tobacco products. Follow up with outpatient neurology and cardiology for prolonged cardiac monitoring to rule out paroxysmal atrial fibrillation. Status: Acute
[2017-06-05] MEDS: Lidocaine 5% Patch TD SCH (21:00)
[2017-06-06 05:02] VITALS: RESP 18
[2017-06-06 08:15] VITALS: BP 126/73; PULSE 67; TEMP 97.8; O2SAT 97
[2017-06-06] MEDS: Enoxaparin 40 mg Syringe SC SCH (08:31)
[2017-06-06] MEDS: CYANOCOBALAMIN 500 MCG TAB PO SCH (08:31)
--- NOTE | 2017-06-06 11:29 | CP.PCM.PN ---
Subjective - Date & Time of Evaluation Date of Evaluation: 06/05/17 Time of Evaluation: 11:27 - Subjective Subjective: Patient is doing a lot better Ambulates well independently MRI and MRA showed chronic chnages. Objective - Vital Signs/Intake and Output Vital Signs (last 24 hours): Temp Pulse Resp BP Pulse Ox 97.8 F 67 18 126/73 97 06/06/17 08:14 06/06/17 08:14 06/06/17 08:14 06/06/17 08:14 06/06/17 08:14 - Medications Medications: Current Medications Aspirin (Aspirin Chewable) 81 mg PO [facility] Last Admin: 06/05/17 21:53 Dose: 81 mg Atorvastatin Calcium (Lipitor) 10 mg PO [facility] Last Admin: 06/05/17 21:53 Dose: 10 mg Clopidogrel Bisulfate (Plavix) 75 mg PO [facility] Last Admin: 06/05/17 21:54 Dose: 75 mg Cyanocobalamin (Vitamin B12) 250 mcg PO DAILY [facility] Last Admin: 06/06/17 08:31 Dose: 250 mcg Enoxaparin Sodium (Lovenox) 40 mg SC DAILY [facility] PRN Reason: Protocol Last Admin: 06/06/17 08:31 Dose: 40 mg Lidocaine (Lidoderm) 1 ea TD DAILY@1999 [facility] Last Admin: 06/05/17 21:00 Dose: 1 ea Losartan Potassium (Cozaar) 50 mg PO DAILY PRN PRN Reason: hypertension Metformin HCl (Glucophage) 500 mg PO BIDWM [facility] Last Admin: 06/06/17 08:31 Dose: 500 mg - Labs Labs: PT 12.4 Seconds (9.8-13.1) 06/02/17 08:46 INR 1.2 (0.9-1.2) 06/02/17 08:46 APTT 29.1 Seconds (25.6-37.1) 06/02/17 08:46 - Head Exam Head Exam: NORMAL INSPECTION - Eye Exam Eye Exam: Normal appearance - ENT Exam ENT Exam: Mucous Membranes Moist - Respiratory Exam Respiratory Exam: NORMAL BREATHING PATTERN - Cardiovascular Exam Cardiovascular Exam: REGULAR RHYTHM - GI/Abdominal Exam GI & Abdominal Exam: Normal Bowel Sounds - Neurological Exam Neurological Exam: Awake, Oriented x3 - Psychiatric Exam Psychiatric exam: Normal Mood Assessment and Plan (1) CVA (cerebral vascular accident) Status: Acute (2) New onset type 2 diabetes mellitus Status: Acute (3) Hypertension Status: Chronic - Assessment and Plan (Free Text) Plan: Cont meds Cont tx Cont PT DC plans.
--- NOTE | 2017-06-06 11:31 | CP.PCM.DIS ---
Provider - Provider Date of Admission: 06/02/17 12:44 Attending physician: Brennan Farr MD Time Spent in preparation of Discharge (in minutes): 30 Diagnosis - Discharge Diagnosis (1) CVA (cerebral vascular accident) Status: Acute Priority: High (2) New onset type 2 diabetes mellitus Status: Acute (3) Hypertension Status: Chronic Hospital Course - Lab Results Lab Results: Most Recent Lab Values WBC 7.5 K/uL (4.8-10.8) 06/02/17 08:46 RBC 4.23 Mil/uL (4.40-5.90) L 06/02/17 08:46 Hgb 11.8 g/dL (12.0-18.0) L 06/02/17 08:46 Hct 36.5 % (35.0-51.0) 06/02/17 08:46 MCV 86.3 fl (80.0-94.0) 06/02/17 08:46 MCH 27.9 pg (27.0-31.0) 06/02/17 08:46 MCHC 32.3 g/dL (33.0-37.0) L 06/02/17 08:46 RDW 18.1 % (11.5-14.5) H 06/02/17 08:46 Plt Count 184 K/uL (130-400) 06/02/17 08:46 MPV 8.2 fl (7.2-11.7) 06/02/17 08:46 Neut % (Auto) 59.1 % (50.0-75.0) 06/02/17 08:46 Lymph % (Auto) 31.3 % (20.0-40.0) 06/02/17 08:46 Mercer % (Auto) 5.6 % (0.0-10.0) 06/02/17 08:46 Eos % (Auto) 3.4 % (0.0-4.0) 06/02/17 08:46 Baso % (Auto) 0.6 % (0.0-2.0) 06/02/17 08:46 Neut # 4.4 K/uL (1.8-7.0) 06/02/17 08:46 Lymph # 2.3 K/uL (1.0-4.3) 06/02/17 08:46 Mercer # 0.4 K/uL (0.0-0.8) 06/02/17 08:46 Eos # 0.3 K/uL (0.0-0.7) 06/02/17 08:46 Baso # 0.0 K/uL (0.0-0.2) 06/02/17 08:46 PT 12.4 Seconds (9.8-13.1) 06/02/17 08:46 INR 1.2 (0.9-1.2) 06/02/17 08:46 APTT 29.1 Seconds (25.6-37.1) 06/02/17 08:46 Sodium 139 mmol/l (132-148) 06/02/17 08:46 Potassium 4.5 MMOL/L (3.6-5.0) 06/02/17 08:46 Chloride 105 mmol/L (98-107) 06/02/17 08:46 Carbon Dioxide 23 mmol/L (22-30) 06/02/17 08:46 Anion Gap 15 (10-20) 06/02/17 08:46 BUN 9 mg/dl (9-20) 06/02/17 08:46 Creatinine 1.1 mg/dL (0.8-1.5) 06/02/17 08:46 Est GFR ( Amer) > 60 06/02/17 08:46 Est GFR (Non-Af Amer) > 60 06/02/17 08:46 POC Glucose (mg/dL) 95 mg/dL (65-110) 06/06/17 05:18 Random Glucose 188 mg/dL (75-110) H 06/02/17 08:46 Hemoglobin A1c 6.6 % (4.2-6.5) H 06/02/17 08:46 Calcium 9.1 mg/dL (8.4-10.2) 06/02/17 08:46 Total Bilirubin 0.8 mg/dl (0.2-1.3) 06/02/17 08:46 AST 47 U/L (17-59) 06/02/17 08:46 ALT 47 U/L (21-72) 06/02/17 08:46 Alkaline Phosphatase 88 U/L (38-126) 06/02/17 08:46 Troponin I < 0.0120 ng/mL (0.00-0.120) 06/02/17 08:46 Total Protein 7.6 G/DL (6.3-8.2) 06/02/17 08:46 Albumin 4.3 g/dL (3.5-5.0) 06/02/17 08:46 Globulin 3.3 gm/dL (2.2-3.9) 06/02/17 08:46 Albumin/Globulin Ratio 1.3 (1.0-2.1) 06/02/17 08:46 Triglycerides 123 mg/DL (0-149) 06/02/17 08:46 Cholesterol 149 mg/dL (0-199) 06/02/17 08:46 LDL Cholesterol Direct 111 mg/dL (0-129) 06/02/17 08:46 HDL Cholesterol 28 MG/DL (30-70) L 06/02/17 08:46 Vitamin B12 237 pg/mL (239-931) L 06/02/17 15:27 TSH 3rd Generation 5.42 mIU/ML (0.46-4.68) H 06/02/17 15:27 Blood Type B POSITIVE 06/02/17 08:46 Blood Type Confirm B POSITIVE 06/02/17 09:27 Antibody Screen Negative 06/02/17 08:46 BBK History Checked No verified bt 06/02/17 08:46 - Hospital Course Hospital Course: This is a 72 y/o male with hx of hyperlipidemia and newly dx DM 2 who presented with left sided weakness. Initial CT scan was unremarkbale, He was started on anticoagulant and ASA . Neuro was consulted. He was also started on diabetic meds. His symptoms resolved and phys therapy evaluation showed increased strength on the area, he was sent home on medication and stable condition. Discharge Exam - Head Exam Head Exam: NORMAL INSPECTION - Eye Exam Eye Exam: Normal appearance - Respiratory Exam Respiratory Exam: NORMAL BREATHING PATTERN - Cardiovascular Exam Cardiovascular Exam: REGULAR RHYTHM - GI/Abdominal Exam GI & Abdominal Exam: Normal Bowel Sounds - Neurological Exam Neurological exam: CN II-XII Intact, Oriented x3 - Psychiatric Exam Psychiatric exam: Normal Mood Discharge Plan - Follow Up Plan Condition: GUARDED Disposition: HOME/ ROUTINE Additional Instructions: follow up with Neuro and my office in 2 weeks.
== END 2017-06-06 12:15 | disposition home or self-care (01) | DRG 65 ==
LOC: H.ER 08:13 → H.ERHOLD 12:44 → H.TEL 15:14
PROVIDERS: ADMIT Family Medicine; ATTEND Family Medicine
PROC: 3E0234Z Introduction of Serum, Toxoid and Vaccine into Muscle, Percutaneous Approach (ICD-10-PCS; principal; 2017-06-02)
DX: I63.9 Cerebral infarction, unspecified (principal); G81.94 Hemiplegia, unspecified affecting left nondominant side; E11.9 Type 2 diabetes mellitus without complications; I10 Essential (primary) hypertension; R47.81 Slurred speech; I25.10 Atherosclerotic heart disease of native coronary artery without angina pectoris; E78.5 Hyperlipidemia, unspecified; I25.2 Old myocardial infarction; Z23 Encounter for immunization; Z79.02 Long term (current) use of antithrombotics/antiplatelets; Z79.82 Long term (current) use of aspirin; Z95.1 Presence of aortocoronary bypass graft